=== PATIENT | male | born 1950 | race Two or more races ===

== ENCOUNTER 2022-03-10 14:56 | Emergency (ER) | payer OTHER, BC ==
[~2022-03-10] VITALS: Ht 182.9 cm; Wt 70.0 kg
[2022-03-10 20:16] VITALS: BP 99/67
== END 2022-03-10 20:24 | disposition home or self-care (01) ==
LOC: EDBD 14:56 → ER 14:56
DX: K94.23 Gastrostomy malfunction (principal)
CPT/HCPCS: 43762